=== PATIENT | female | born 2000 | race Caucasian/White ===

== ENCOUNTER 2022-03-06 14:12 | Outpatient (CLI) | payer OTHER | END 2022-03-06 14:13 | disposition home or self-care (01) | LOC: CSHULT 14:12 | PROVIDERS: ATTEND Family Medicine | DX: O09.892 Supervision of other high risk pregnancies, second trimester (principal); Z3A.20 20 weeks gestation of pregnancy | CPT/HCPCS: 76805 ==

== ENCOUNTER 2022-06-27 23:07 | Day surgery (SDC) | payer OTHER ==
[2022-06-27 23:40] VITALS: BMI 52.5
[2022-06-28] MEDS ORDERED: hydrALAZINE 20 MG/ML VIAL SLOW IVP PRN (00:37)
[2022-06-28] MEDS ORDERED: Lactated Ringer's 1,000 ML IV SCH (02:00)
== END 2022-06-28 04:40 | disposition home or self-care (01) ==
LOC: CSHLD/OP 23:07
PROVIDERS: ATTEND Family Medicine
DX: O47.03 False labor before 37 completed weeks of gestation, third trimester (principal); Z3A.36 36 weeks gestation of pregnancy; Z91.018 Allergy to other foods; Z90.49 Acquired absence of other specified parts of digestive tract
CPT/HCPCS: 96360; 96361; 99283

== ENCOUNTER 2022-07-17 05:45 | Inpatient (IN) | payer OTHER ==
[2022-07-16 12:22] LABS: Hemoglobin 10.6 g/dL (12.0-15.5); Mean Corpuscular Hemoglobin 26.6 pg (27.0-33.0); Mean Corpuscular Volume 80.5 fl (81.6-98.3); Mean Platelet Volume 10.9 fl (7.4-10.4); Platelet Count 386 10x3/uL (150-450); RBC Distribution Width 13.9 % (11.5-14.5); Red Blood Cell (RBC) Count 3.99 10x6/uL (3.90-5.03); White Blood Cell (WBC) Count 13.1 10x3/uL (3.5-10.5)
[2022-07-16 12:54] LABS: SARS-CoV-2 NAA Rapid Test Not Detected (NotDetected)
[2022-07-16 12:58] LABS: HBSAg Index 0.13 S/CO (0-0.99); Hep B Surf Ag Non-Reactive S/CO (NonReactive)
[2022-07-16 13:00] LABS: Syphilis Antibody Nonreactive (Nonreactive); Syphilis Antibody Index 0.06 S/CO (<1.00 Non-Reactive)
[2022-07-17] MEDS ORDERED: hydrALAZINE 20 MG/ML VIAL SLOW IVP PRN ×2 (06:01→10:56)
[2022-07-17] MEDS ORDERED: Bicitra 30 ML UDCUP PO PRN (06:01)
[2022-07-17] MEDS ORDERED: Lactated Ringer's 1,000 ML IV SCH (06:01)
[2022-07-17] MEDS ORDERED: Promethazine HCl 25 MG/ML VIAL IM PRN ×3 (06:01→10:56)
[2022-07-17] MEDS ORDERED: CEFAZOLIN 3 GM, Admixture Fee 1 EACH in Sodium Chloride 0.9% 100 ML IVPB SCH (06:01)
[2022-07-17] MEDS ORDERED: Ondansetron PF 4 MG/2 ML Vial IVP PRN ×3 (06:01→10:56)
[2022-07-17] MEDS ORDERED: Famotidine/PF 20 mg/2ml Vial SLOW IVP PRN (06:01)
[2022-07-17 06:23] VITALS: BMI 51.8
[2022-07-17] MEDS ORDERED: Morphine PF 10 MG/10 ML VIAL ONE (07:11)
[2022-07-17] MEDS ORDERED: ePHEDrine Sulfate 50 MG/10 ML VIAL ONE (07:11)
[2022-07-17] MEDS ORDERED: Glycopyrrolate 0.2 MG/ML 5 ML SYRINGE ONE (07:12)
[2022-07-17] MEDS ORDERED: Dexamethasone 4 mg/ml Vial ONE (07:12)
[2022-07-17] MEDS ORDERED: Phenylephrine 40 MG/NS 250 ML 250 ML ONE (07:12)
[2022-07-17] MEDS ORDERED: Oxytocin 10 UNITS/ML VIAL ONE (07:12)
[2022-07-17] MEDS ORDERED: Ondansetron PF 4 MG/2 ML Vial ONE (07:12)
[2022-07-17] MEDS ORDERED: Ketorolac Tromethamine 30 MG/ML VIAL ONE (07:12)
[2022-07-17] MEDS ORDERED: PHENYLEPHRINE-NS 100 MCG/ML 10 ML SYRINGE ONE (07:12)
[2022-07-17] MEDS ORDERED: Meperidine HCl/PF 25 MG/ML VIAL SLOW IVP PRN (08:51)
[2022-07-17] MEDS ORDERED: Moisturizing Cream (Eucerin) 113 GM JAR TOP PRN (08:51)
[2022-07-17] MEDS ORDERED: diphenhydrAMINE 50 MG/ML VIAL IVP PRN (08:51)
[2022-07-17] MEDS ORDERED: Ketorolac Tromethamine 30 MG/ML VIAL IVP PRN (08:51)
[2022-07-17] MEDS ORDERED: Promethazine HCl 25 MG SUPP PR PRN (08:51)
[2022-07-17] MEDS ORDERED: Naloxone HCl 0.4 mg/ml Vial IVP PRN ×2 (08:51)
[2022-07-17] MEDS ORDERED: Fentanyl 100 MCG/2 ML VIAL SLOW IVP PRN (08:51)
[2022-07-17] MEDS ORDERED: Ondansetron HCl/PF 4 MG/2 ML Vial IVP PRN (08:51)
[2022-07-17] MEDS ORDERED: Naloxone HCl 0.4 mg/ml Vial IV PRN (08:51)
[2022-07-17] MEDS ORDERED: Ketorolac Tromethamine 30 MG/ML VIAL IVP SCH (09:00)
[2022-07-17] MEDS ORDERED: Communication Order-Pharmacy FS SCH (09:00)
[2022-07-17] MEDS ORDERED: Boostrix 0.5 ML (Tdap) VIAL (>/=7 yrs of age) IM ONE (10:56)
[2022-07-17] MEDS ORDERED: NS w/ Oxytocin 30 units 500 ML IV SCH (10:56)
[2022-07-17] MEDS ORDERED: diphenhydrAMINE 25 MG CAP PO PRN (10:56)
[2022-07-17] MEDS ORDERED: Simethicone Chewable 80 MG TAB PO PRN (10:56)
[2022-07-17] MEDS ORDERED: Lanolin Ointment 7 GM TUBE TOP PRN (10:56)
[2022-07-17] MEDS ORDERED: Meperidine HCl/PF 25 MG/ML VIAL IM PRN (10:56)
[2022-07-17] MEDS ORDERED: Bisacodyl 10 MG SUPP PR PRN (10:56)
[2022-07-17] MEDS: Ketorolac Tromethamine 30 MG/ML VIAL IVP SCH ×2 (17:20→23:47)
[2022-07-17] MEDS: Ferrous Sulfate 325 MG TAB PO SCH (21:24)
[2022-07-17] MEDS: Docusate 100 MG CAP PO SCH (21:42)
[2022-07-18 05:22] LABS: Hemoglobin 8.3 g/dL (12.0-15.5); Mean Corpuscular HGB CONC 32.7 g/dL (32.0-36.0); Mean Corpuscular Hemoglobin 26.7 pg (27.0-33.0); Mean Corpuscular Volume 81.7 fl (81.6-98.3); Mean Platelet Volume 11.4 fl (7.4-10.4); Platelet Count 334 10x3/uL (150-450); RBC Distribution Width 13.9 % (11.5-14.5); Red Blood Cell (RBC) Count 3.11 10x6/uL (3.90-5.03); White Blood Cell (WBC) Count 15.3 10x3/uL (3.5-10.5)
[2022-07-18] MEDS: Ketorolac Tromethamine 30 MG/ML VIAL IVP SCH ×2 (05:39→11:29)
[2022-07-18] MEDS: Docusate 100 MG CAP PO SCH ×2 (08:32→20:36)
[2022-07-18] MEDS: Prenatal Vitamin 1 TAB PO SCH (08:32)
[2022-07-18] MEDS: Ferrous Sulfate 325 MG TAB PO SCH ×2 (08:32→20:36)
[2022-07-18] MEDS: HYDROcodone/Acetaminophen 5/325 mg Tablet PO PRN ×3 (08:33→20:35)
[2022-07-18] MEDS: Ibuprofen 800 MG TAB PO SCH ×2 (14:48→20:36)
[2022-07-19] MEDS: Ibuprofen 800 MG TAB PO SCH ×2 (05:30→12:56)
[2022-07-19 07:53] VITALS: BP 134/72; TEMP 98
[2022-07-19] MEDS: Ferrous Sulfate 325 MG TAB PO SCH (08:15)
[2022-07-19] MEDS: Docusate 100 MG CAP PO SCH (08:15)
[2022-07-19] MEDS: Prenatal Vitamin 1 TAB PO SCH (08:15)
[2022-07-19] MEDS: HYDROcodone/Acetaminophen 5/325 mg Tablet PO PRN ×2 (08:18→12:57)
== END 2022-07-19 15:50 | disposition home or self-care (01) | DRG 788 ==
LOC: CSHLD 05:45 → CSHPP 10:30
PROVIDERS: ADMIT Family Medicine; ATTEND Family Medicine
PROC: 10D00Z1 Extraction of Products of Conception, Low, Open Approach (ICD-10-PCS; principal; 2022-07-17)
DX: O34.211 Maternal care for low transverse scar from previous cesarean delivery (principal); E66.01 Morbid (severe) obesity due to excess calories; O99.214 Obesity complicating childbirth; Z3A.39 39 weeks gestation of pregnancy; Z37.0 Single live birth; Z20.822 Contact with and (suspected) exposure to COVID-19; Z91.018 Allergy to other foods; Z90.49 Acquired absence of other specified parts of digestive tract
CPT/HCPCS: 51702; 85027; 86780; 86850; 86900; 86901; 87340; J1100; J1885; J2274; J2405; J2590; J3490; J7120; S0028; U0002